=== PATIENT | male | born 1965 | race Caucasian/White ===

== ENCOUNTER → 2017-12-08 | Outpatient (CLI) | payer BC ==
--- NOTE | 2017-12-10 21:02 | RT HOLTER TEST ---
[facility] PATIENT NAME: KEVIN COATS : [id number] MR: [id number] V: [id number] EXAM DATE: ORDERING PHYSICIAN: SANDRA LEW TECHNOLOGIST: Kiya Katz-up date: 2017-12-08 13:31:00 Duration: 47:59:00 Test Indications: A-FIB Medications: STRATERA CARTIA [id number] QRS complexes 246 Ventricular ectopics which represent <1 % of total QRS comp. 187 Supraventricular ectopics which represent <1 % of total QRS comp. * Paced QRS complexes which represent % of total QRS comp. VENTRICULAR ECTOPY 230 Isolated 0 Bigeminal Cycles 8 Couplets 0 Runs 0 Beats in Runs * Beats LONGEST at * BPM at :: -- * Beats FASTEST at * BPM at :: -- SUPRAVENTRICULAR ECTOPY 154 Isolated 3 Couplets 5 Runs 27 Beats in Runs 8 Beats LONGEST at 136 BPM at 16:02:06 2017-12-08 5 Beats FASTEST at 150 BPM at 15:58:09 2017-12-08 HEART RATES 44 MIN at 04:25:24 2017-12-09 112 AVG 198 MAX at 17:46:48 2017-12-08 LONGEST RR 2.136 secs at 04:25:21 2017-12-09 S-T LEVELS Channel 1 -12.800 mm MIN at 13:31:00 2017-12-08 -12.800 mm MAX at 13:31:00 2017-12-08 Channel 2 -12.800 mm MIN at 13:31:00 2017-12-08 -12.800 mm MAX at 13:31:00 2017-12-08 Channel 3 -12.800 mm MIN at 13:31:00 2017-12-08 -12.800 mm MAX at 13:31:00 2017-12-08 Sinus rhythm Intermittent Atrial fibrillation Atrial flutter Premature ventricular complexes Premature supraventricular complexes Confirmed by CAROL TAN ([id number]) on 12/10/2017 9:01:34 PM Referred By: Overread By: CAROL TAN
== END ==
LOC: RESP 03:13
PROVIDERS: ATTEND Internal Medicine Clinical Cardiac Electrophysiology
DX: I48.0 Paroxysmal atrial fibrillation (principal)
CPT/HCPCS: 93225; 93226

== ENCOUNTER → 2018-04-13 | Outpatient (CLI) | payer BC | LOC: LAB 12:50 | PROVIDERS: ATTEND Internal Medicine Clinical Cardiac Electrophysiology | DX: I48.0 Paroxysmal atrial fibrillation (principal) | CPT/HCPCS: 36415; 82310; 82374; 82435; 82565; 82947; 84132; 84295; 84520; 85027 ==

== ENCOUNTER → 2019-02-07 | Outpatient (CLI) | payer BC ==
[~2019-02-07] MED LIST: REGADENOSON 0.4 MG/5 ML SYR ONE
--- NOTE | 2019-02-07 12:36 | RT STRESS TEST REPORT ---
FACILITY: [facility] [place] PATIENT NAME: KEVIN COATS : [id number] MR: [id number] V: [id number] EXAM DATE: ORDERING PHYSICIAN: SANDI JACKSON TECHNOLOGIST: Maryanne Acquisition Time: 2019-02-07 09:42:26 Total Exercise Time: 00:01:00 Test Indications: Chest Discomfort Medications: see nuclear med sheet Protocol: LEXISCAN Max HR: 090 BPM 53% of Pred: 169 BPM Max BP: 126/071 mmHG Max Work Load: 1.0 METS Impression No EKG changes to suggest ischemia Nuclear medicine report to follow Confirmed by DIANA HUGHES ([id number]) on 02/07/2019 12:35:58 PM Referred By: Overread By: DIANA HUGHES
--- NOTE | 2019-02-07 14:48 | RADIOLOGY IMAGING REPORT ---
FACILITY: [facility] PATIENT NAME: Abhijit Garcia : 1965 MR: [id number] V: [id number] EXAM DATE: ORDERING PHYSICIAN: SANDI JACKSON TECHNOLOGIST: Location: [facility] Patient: Abhijit Garcia : 1965 Visit/Account:[id number] Date of Sevice: 02/07/2019 EXAMINATION: Single isotope SPECT imaging with regadenoson infusion and gated SPECT imaging. DATE OF EXAMINATION: 02/07/2019. DATE OF INTERPRETATION: 02/07/2019. REQUESTING PHYSICIAN: SANDI JACKSON. INDICATION: The patient is a 53-year-old male evaluated for chest discomfort. PROCEDURE: After informed consent the patient received an intravenous injection of 12.9 mCi of Tc-99 m sestamibi followed at an appropriate time interval by rest imaging. The patient then subsequently received an intravenous infusion of 0.4 mg of regadenoson per protocol without complication. Resting heart rate was 72 bpm with a peak heart rate of 90 bpm. Blood pressure at rest was 121 / 85 and fol lowing infusion was 126 / 71. Baseline EKG demonstrates sinus rhythm. There were no EKG changes of ischemia following infusion. Symptoms were nonspecific. The patient then received an intravenous in jection of 28.7 mCi of Tc-99m sestamibi followed by stress imaging. RAW DATA: Examination of the summed raw data revealed a good quality study. MYOCARDIAL PERFUSION: The tomographic images demonstrate normal myocardial perfusion with no evidenc e of infarct or ischemia. There is no TID. GATED IMAGES: The gated images demonstrate normal ejection fraction 67% with normal wall motion and thickening. IMPRESSION: 1. Nondiagnostic Lexiscan stress ECG 2. Normal myocardial perfusion scan. 3. Normal LV systolic function; LVEF 67%. 4. Based on the results of this exam, the patient appears to be at low risk for future cardiovascular events. Report Dictated By: Aubrey Roberts at 02/07/2019 2:41 PM Report E-Signed By: Aubrey Roberts at 02/07/2019 2:42 PM WSN:[id number]
== END ==
LOC: RESP 01:00
PROVIDERS: ATTEND Nurse Practitioner Family
DX: R07.89 Other chest pain (principal)
CPT/HCPCS: 78452; 93017; A9500; J2785